=== PATIENT | female | born 1990 | race Caucasian/White ===

== ENCOUNTER 2020-03-06 15:59 | Emergency (ER) | payer BC ==
[~2020-03-06] VITALS: Wt 89.8 kg
[~2020-03-06 15:59] MED LIST: DAYPRO600 M1 PO; LORAZEPAM1 MG PO; NKHM; Orphenadrine C100 MG PO; PREDNISONE10 M1 PO; PRENATAL1 TA4 PO; ROBAXIN-750750 MG PO; SKELAXIN800 MG PO; TORADOL10 MG PO; VICODIN 5/500 505 MG PO; VICODIN 500 MG-1 TAB PO; VISTARIL25 M1 PO; VOLTAREN50 M1 PO
[2020-03-06 16:02] VITALS: BP 145/92
[2020-03-06] MEDS ORDERED: MEDROL DOSEPAK4 MG PO (16:16)
[2020-03-06] MEDS ORDERED: ROBAXIN-750750 MG PO (16:16)
== END 2020-03-06 16:29 | disposition home or self-care (01) ==
LOC: ED 15:59
DX: M54.5 Low back pain (principal); Z88.8 Allergy status to other drugs, medicaments and biological substances

== ENCOUNTER 2023-02-07 20:25 | Emergency (ER) | payer OTHER ==
[~2023-02-07] VITALS: Ht 162.5 cm; Wt 82.6 kg
[~2023-02-07 20:25] MED LIST changes: +MEDROL DOSEPAK4 MG PO
[2023-02-07] MEDS ORDERED: OMEPRAZOLE40 MG PO (20:50)
[2023-02-07 20:51] VITALS: BP 128/62
[2023-02-07 21:30] LABS: BASO % 0.8 % (0.0-1.0); EOS # 0.1 10*3/uL (0.0-0.4); EOS % 1.6 % (1.0-4.0); HEMATOCRIT 39.2 % (37.0-47.0); LYMPH # 1.6 10*3/uL (1.3-4.4); LYMPH % 32.1 % (27.0-41.0); MEAN CELL VOLUME 94.5 fl (81.0-99.0); MEAN CORPUSCULAR HGB 31.6 pg (27.0-31.0); MEAN CORPUSCULAR HGB CONC 33.4 g/dl (33.0-37.0); MEAN PLATELET VOLUME 10.5 fl (9.6-12.3); MONO # 0.4 10*3/uL (0.1-1.0); MONO % 8.3 % (3.0-9.0); NEUT # 2.9 10*3/uL (2.3-7.9); PLATELET COUNT AUTOMATED 211 10*3/uL (130-400); RED BLOOD COUNT 4.15 10*6/uL (4.10-5.10); RED CELL DISTRI WIDTH 11.9 % (0-14.5); WHITE BLOOD COUNT 5.1 10*3/uL (4.8-10.8)
[2023-02-07 21:42] LABS: ACT PARTIAL THROMBO TIME 29.1 SECONDS (20.0-32.1)
[2023-02-07 21:55] LABS: ALKALINE PHOSPHATASE 54 U/L (46-116); BUN 9 mg/dl (9-23); CHLORIDE 105 mmol/L (98-107); LIPASE 34 U/L (12-53); POTASSIUM 3.6 mmol/L (3.4-5.1); TOTAL PROTEIN 6.8 gm/dL (6.0-8.0)
[2023-02-07 22:08] LABS: SGPT/ALT < 7 U/L (10-49)
[2023-02-08] MEDS ORDERED: AMOX-CLAV 875-1 EACH PO (00:02)
== END 2023-02-08 00:33 | disposition home or self-care (01) ==
LOC: ED 20:25
PROVIDERS: Internal Medicine
DX: H66.90 Otitis media, unspecified, unspecified ear (principal); R53.81 Other malaise; R51.9 Headache, unspecified; M54.2 Cervicalgia; Z88.8 Allergy status to other drugs, medicaments and biological substances; Z98.890 Other specified postprocedural states; Z20.822 Contact with and (suspected) exposure to COVID-19

== ENCOUNTER → 2024-05-06 | Outpatient (CLI) | payer OTHER ==
[~2024-05-06] MED LIST changes: +AMOX-CLAV 875-1 EACH PO; +OMEPRAZOLE40 MG PO
[2024-05-06 13:10] LABS: BASO % 0.6 % (0.0-1.0); EOS # 0.1 10*3/uL (0.0-0.4); EOS % 0.9 % (1.0-4.0); HEMATOCRIT 41.5 % (37.0-47.0); MEAN CELL VOLUME 94.7 fl (81.0-99.0); MEAN CORPUSCULAR HGB 31.3 pg (27.0-31.0); MEAN PLATELET VOLUME 10.2 fl (9.6-12.3); MONO # 0.3 10*3/uL (0.1-1.0); MONO % 6.4 % (3.0-9.0); NEUT # 3.4 10*3/uL (2.3-7.9); NEUT % 64.6 % (47.0-73.0); PLATELET COUNT AUTOMATED 234 10*3/uL (130-400); RED BLOOD COUNT 4.38 10*6/uL (4.10-5.10); RED CELL DISTRI WIDTH 11.7 % (0-14.5); WHITE BLOOD COUNT 5.3 10*3/uL (4.8-10.8)
[2024-05-06 13:40] LABS: ALKALINE PHOSPHATASE 67 U/L (46-116); BUN 10 mg/dl (9-23); CHLORIDE 103 mmol/L (98-107); CHOLESTEROL 172 mg/dL (<200); FREE T4 1.47 ng/dl (0.89-1.76); LDL CHOLESTEROL 111 mg/dL (9-159); POTASSIUM 3.9 mmol/L (3.4-5.1); SGPT/ALT 8 U/L (5-49); TOTAL PROTEIN 7.4 gm/dL (6.0-8.0); TRIGLYCERIDES 59 mg/dl (<150)
[2024-05-06 14:07] LABS: VITAMIN D, 25-HYDROXY 40.8 ng/mL (30-100)
== END | disposition home or self-care (01) ==
LOC: LAB 12:34
PROVIDERS: ATTEND Internal Medicine
DX: Z13.0 Encounter for screening for diseases of the blood and blood-forming organs and certain disorders involving the immune mechanism (principal); Z13.1 Encounter for screening for diabetes mellitus; Z13.21 Encounter for screening for nutritional disorder; Z13.220 Encounter for screening for lipoid disorders; Z13.228 Encounter for screening for other metabolic disorders; Z13.29 Encounter for screening for other suspected endocrine disorder; Z13.6 Encounter for screening for cardiovascular disorders; Z13.89 Encounter for screening for other disorder; E11.65 Type 2 diabetes mellitus with hyperglycemia; F17.210 Nicotine dependence, cigarettes, uncomplicated; R53.83 Other fatigue; E53.9 Vitamin B deficiency, unspecified; E55.9 Vitamin D deficiency, unspecified